=== PATIENT | female | born 1955 ===

== ENCOUNTER 2018-09-07 10:54 | Outpatient (CLI) | payer OTHER | END 2018-09-07 10:55 | disposition home or self-care (01) | LOC: C.LAB 10:54 | DX: E78.5 Hyperlipidemia, unspecified (principal) ==

== ENCOUNTER 2018-09-23 10:52 | Outpatient (CLI) | payer OTHER | END 2018-09-23 10:53 | disposition home or self-care (01) | LOC: C.LAB 10:52 | DX: N18.2 Chronic kidney disease, stage 2 (mild) (principal); E78.5 Hyperlipidemia, unspecified; R53.83 Other fatigue; E11.9 Type 2 diabetes mellitus without complications; E55.9 Vitamin D deficiency, unspecified ==

== ENCOUNTER 2018-10-05 12:09 | Emergency (ER) | payer OTHER ==
[2018-10-05] MEDS ORDERED: Sodium Chloride 0.9% 1,000 ML IV ONE (14:10)
[2018-10-05 14:24] LABS: BASO % 0.5 % (0.0-2.0); EOS % 0.4 % (0.0-4.0); HEMOGLOBIN 12.4 g/dL (11.0-16.0); LYMPH % 40.8 % (20.0-40.0); MEAN CELL VOLUME 88.6 fL (81.0-99.0); MEAN CORPUSCULAR HEMOGLOBIN 29.9 pg (27.0-31.0); MEAN CORPUSCULAR HGB CONC 33.7 g/dL (33.0-37.0); MEAN PLATELET VOLUME 8.4 fL (7.2-11.7); MONO # 0.3 K/uL (0.0-0.8); MONO % 4.6 % (0.0-10.0); NEUT % 53.7 % (50.0-75.0); NRBC % 0.1 % (0.0-2.0); RBC 4.16 Mil/uL (3.80-5.20); RED CELL DISTRIBUTION WIDTH 14.3 % (11.5-14.5); WHITE BLOOD COUNT 7.5 K/uL (4.8-10.8)
[2018-10-05] MEDS ORDERED: Sodium Chloride 0.9% 1,000 ML ONE (14:26)
[2018-10-05] MEDS ORDERED: Morphine 4 MG/ML VIAL ONE ×2 (14:26→17:43)
[2018-10-05 14:46] LABS: ALB/GLOB RATIO 1.3 (1.0-2.1); ALT/SGPT < 6 U/L (9-52); AST/SGOT 17 U/L (14-36); BLOOD UREA NITROGEN 19 mg/dL (7-17); CALCIUM 9.6 mg/dl (8.6-10.4); GFR NON-AFRICAN AMERICAN > 60; LIPASE 179 U/L (23-300)
[2018-10-05] MEDS ORDERED: Iohexol 240 (50 ml) ONE (14:46)
--- NOTE | 2018-10-05 15:08 | C.PDOC ---
History Of Present Illness 63 year old female presents to ED with complaint of diffuse abdominal pain that began in the right upper quadrant for the last 5 days. Patient was last seen at [facility] for the same symptoms. Patient had blood work and a renal US done. Patient was told that she had muscle spasms. Patient states that she has been taking Flexeril with no relief. Patient also complains of nausea. She denies vomiting, diarrhea, fever, dysuria, hematuria, and prior episodes of similar pain. Time Seen by Provider: 10/05/18 13:37 Chief Complaint (Nursing): Abdominal Pain History Per: Patient History/Exam Limitations: no limitations Onset/Duration Of Symptoms: Days (5) Current Symptoms Are (Timing): Still Present Location Of Pain/Discomfort: Diffuse Radiation Of Pain To:: None Quality Of Discomfort: "Pain" Associated Symptoms: Nausea. denies: Fever, Chills, Vomiting, Diarrhea, Urinary Symptoms Exacerbating Factors: None Alleviating Factors: None Past Medical History Reviewed: Historical Data, Nursing Documentation, Vital Signs Vital Signs: Last Vital Signs Temp 97.1 F L 10/05/18 12:25 Pulse 89 10/05/18 14:35 Resp 20 10/05/18 14:35 BP 145/76 10/05/18 14:35 Pulse Ox 98 10/05/18 14:35 - Medical History PMH: Anxiety, Depression, HTN Surgical History: Cholecystectomy Family History: States: Unknown Family Hx - Social History Hx Alcohol Use: Yes Hx Substance Use: No - Immunization History Hx Influenza Vaccination: Yes Review Of Systems Constitutional: Negative for: Fever, Chills, Weakness Gastrointestinal: Positive for: Nausea, Abdominal Pain (diffuse). Negative for: Vomiting, Diarrhea Genitourinary: Negative for: Dysuria, Hematuria Neurological: Negative for: Weakness, Numbness, Dizziness Physical Exam - Physical Exam Appears: Non-toxic, Other (mild discomfort, morbidly obese) Skin: Normal Color, Warm, Dry Head: Atraumatic, Normacephalic Neck: Normal ROM, Supple Chest: Symmetrical, No Deformity Cardiovascular: Rhythm Regular, No Murmur Respiratory: No Accessory Muscle Use, No Rales, No Rhonchi, No Wheezing Gastrointestinal/Abdominal: Tenderness (diffusely tender, greater tenderness in the epigastric and periumbilical area), Other (2 cm midline surgical scar along the umbilicus; obese abdomen) Extremity: Capillary Refill (<2 seconds) Neurological/Psych: Oriented x3, Normal Speech, Normal Cognition ED Course And Treatment - Laboratory Results Result Diagrams: 10/05/18 14:20 10/05/18 14:20 Lab Results: Total Bilirubin 0.4 mg/dL (0.2-1.3) 10/05/18 14:20 AST 17 U/L (14-36) 10/05/18 14:20 ALT < 6 U/L (9-52) L D 10/05/18 14:20 Alkaline Phosphatase 81 U/L (38-126) 10/05/18 14:20 Total Protein 7.1 g/dL (6.3-8.3) 10/05/18 14:20 Albumin 4.0 g/dL (3.5-5.0) 10/05/18 14:20 Globulin 3.0 gm/dL (2.2-3.9) 10/05/18 14:20 Albumin/Globulin Ratio 1.3 (1.0-2.1) 10/05/18 14:20 Lipase 179 U/L (23-300) 10/05/18 14:20 O2 Sat by Pulse Oximetry: 98 (in RA) Progress Note: Labs ordered with CBC and UA. Abdomen/Pelvis CT ordered for patient. Patient given Morphine and IV fluids. Disposition Counseled Patient/Family Regarding: Studies Performed, Diagnosis, Need For Followup, Rx Given - Disposition Referrals: [facility] [Outside] Oneal Mai MD [Staff Provider] - Disposition: HOME/ ROUTINE Disposition Time: 19:00 Condition: STABLE Additional Instructions: FOLLOW UP WITH YOUR DOCTOR IN 1-2 DAYS, AND WITH MEDICAL SUPPORT ASSISTANT WITHIN 1 WEEK USE MEDICATIONS DIRECTED/NEEDED RETURN TO ER IF SYMPTOMS WORSEN Prescriptions: Acetaminophen with Codeine [Tylenol with Codeine #3 Tablet] 1 each PO Q6 PRN #12 tablet PRN Reason: pain Famotidine [Pepcid] 20 mg PO BID PRN #15 tab PRN Reason: abdominal Pantoprazole [Protonix EC Tab] 20 mg PO DAILY #30 ect Instructions: Acute Abdomen (Belly Pain), Adult (DC) Forms: [employer] ([place] Islander) Print Language: ESTONIAN - Clinical Impression Clinical Impression: Abdominal pain - Scribe Statement The provider has reviewed the documentation as recorded by the Scribe (Rosalind Barksdale) All medical record entries made by the Scribe were at my direction and personally dictated by me. I have reviewed the chart and agree that the record accurately reflects my personal performance of the history, physical exam, medical decision making, and the department course for this patient. I have also personally directed, reviewed, and agree with the discharge instructions and disposition.
[2018-10-05 15:20] LABS: SQUAMOUS EPITHIAL 1 /hpf (0-5); URINE BILIRUBIN NEGATIVE (NEGATIVE); URINE BLOOD NEGATIVE (NEGATIVE); URINE CLARITY Clear (Clear); URINE COLOR Yellow (YELLOW); URINE GLUCOSE (UA) 3+ mg/dL (Normal); URINE LEUKOCYTE ESTERASE NEG Leu/uL (Negative); URINE PROTEIN NEGATIVE (NEGATIVE); URINE UROBILINOGEN NORMAL mg/dL (0.2-1.0)
[2018-10-05] MEDS ORDERED: (Novolin R) Insulin Human Regular 100 units/ml vial IVP ONE (16:29)
[2018-10-05] MEDS ORDERED: (Novolin R) Insulin Human Regular 100 units/ml vial ONE (17:03)
--- NOTE | 2018-10-05 18:34 | CT ---
PROCEDURE: CT Abdomen and Pelvis without IV contrast. HISTORY: diffuse abd pain, surgical history, r/o SBO COMPARISON: Abdominal ultrasound performed 04/22/16, CT of the without contrast performed 05/11/14 TECHNIQUE: Contiguous axial images of the abdomen and pelvis. Oral contrast was administered. No IV contrast given. Coronal and Sagittal reformats generated and reviewed. Radiation dose: Total exam DLP = 1200.36 mGy-cm. This CT exam was performed using one or more of the following dose reduction techniques: Automated exposure control, adjustment of the mA and/or kV according to patient size, and/or use of iterative reconstruction technique. FINDINGS: There is limited evaluation of the solid organs without the administration of IV contrast. LOWER THORAX: No visible consolidation, pleural effusion, or pneumothorax. Visualized portions of the heart appear within normal limits of size. LIVER: Unremarkable unenhanced appearance. GALLBLADDER AND BILE DUCTS: Cholecystectomy. PANCREAS: Unremarkable unenhanced appearance. SPLEEN: 12 mm probable splenule. ADRENALS: Unremarkable unenhanced appearance. KIDNEYS AND URETERS: No hydronephrosis or obstructing renal calculus. 13 mm left renal hypodensity measures approximately 12 Hounsfield units consistent with a cyst. BLADDER: The urinary bladder appears unremarkable. REPRODUCTIVE: Uterus is absent consistent with hysterectomy. APPENDIX: The appendix appears within normal limits of caliber. No secondary signs of acute appendicitis. BOWEL: The stomach is nondistended. The bowel loops appear within normal limits of caliber without evidence of intestinal obstruction. Diverticulosis without CT evidence of acute diverticulitis. PERITONEUM: No significant free fluid. No definite free air. LYMPH NODES: No bulky lymphadenopathy identified. VASCULATURE: Atherosclerotic calcification of the aorta and branches. No aortic aneurysm. BONES: Osseous demineralization. Degenerative changes. OTHER FINDINGS: None. IMPRESSION: Cholecystectomy. Diverticulosis without CT evidence of acute diverticulitis.
[2018-10-05 18:52] VITALS: BP 111/65; PULSE 60; RESP 18; TEMP 97.6; O2SAT 97
== END 2018-10-05 19:03 | disposition home or self-care (01) ==
LOC: C.ER 12:09
DX: R10.9 Unspecified abdominal pain (principal); I10 Essential (primary) hypertension
CPT/HCPCS: 74176; 80053; 81001; 83690; 85025; 96361; 96374; 96375; 96376; 99284; C9113; J2270; J7030

== ENCOUNTER 2018-10-20 11:02 | Outpatient (CLI) | payer OTHER | END 2018-10-20 11:03 | disposition home or self-care (01) | LOC: C.EKG 11:02 | DX: E66.9 Obesity, unspecified (principal) ==

== ENCOUNTER 2018-11-05 09:54 | Outpatient (CLI) | payer OTHER | END 2018-11-05 09:55 | disposition home or self-care (01) | LOC: C.LAB 09:54 ==

== ENCOUNTER 2018-11-11 08:02 | Day surgery (SDC) | payer OTHER ==
[2018-11-10 14:07] VITALS: BMI 38.9
[2018-11-11] MEDS ORDERED: (Novolin R) Insulin Human Regular 100 units/ml vial ONE (09:00)
[2018-11-11] MEDS ORDERED: Sodium Chloride 0.9% 1,000 ML IV ONE (09:00)
[2018-11-11 09:17] VITALS: RESP 12; TEMP 96
--- NOTE | 2018-11-11 10:06 | CP.SDSHP ---
Same Day Surgery H & P - History Proposed Procedure: endoscopy Pre-Op Diagnosis: epig pain - Previous Medical/Surgical History Cardiac: Hypertension Endocrine/Metabolic: Diabetes - Allergies Allergies: Allergies No Known Allergies Allergy (Verified 11/11/18 08:27) - Physical Exam Vital Signs: Vital Signs 11/11/18 11/11/18 08:45 09:37 Temperature 96 F L Pulse Rate 97 H 97 H Respiratory 12 Rate Blood Pressure 161/77 H O2 Sat by Pulse 97 Oximetry Mental Status: Alert & Oriented x3 Neuro: WNL Heart: WNL Lungs: WNL GI: WNL - {Optional Preform as Required} Abdomen: WNL - Impression Impression: epig pain Pt. Evaluated Today:Candidate for Anesthesia & Procedure: Yes - Date & Time Date: 11/11/18 Time: 10:06 Short Stay Discharge - Short Stay Discharge Admitting Diagnosis/Reason for Visit: EPIGASTRIC PAIN Disposition: HOME/ ROUTINE
[2018-11-11] MEDS ORDERED: Propofol 10 mg/ml Inj (20 ML) ONE (10:08)
[2018-11-11 10:10] VITALS: O2SAT 100
[2018-11-11 11:13] VITALS: BP 148/69; PULSE 74
== END 2018-11-11 11:16 | disposition home or self-care (01) ==
LOC: C.ENDO 08:02
PROVIDERS: ATTEND Internal Medicine Gastroenterology
DX: K29.70 Gastritis, unspecified, without bleeding (principal); E11.43 Type 2 diabetes mellitus with diabetic autonomic (poly)neuropathy; K44.9 Diaphragmatic hernia without obstruction or gangrene; I10 Essential (primary) hypertension; K31.84 Gastroparesis
CPT/HCPCS: 43239; 82948; 88305; 88342; J2001; J2704; J7030

== ENCOUNTER 2018-11-18 12:13 | Outpatient (CLI) | payer OTHER | END 2018-11-18 12:14 | disposition home or self-care (01) | LOC: C.CTH 12:13 | DX: M79.604 Pain in right leg (principal) ==